=== PATIENT | female | born 1990 | race Caucasian/White ===

== ENCOUNTER 2018-08-20 19:57 | Outpatient (CLI) | payer OTHER ==
[2018-08-20] MEDS: TERBUTALINE 1 MG/ML INJ SC (23:04)
[2018-08-20 23:05] LABS: ADD UMIC YES; UR ASCORBIC ACID NEGATIVE (NEGATIVE); UR BILIRUBIN (Dip) NEGATIVE (NEGATIVE); UR BLOOD (Dip) NEGATIVE (NEGATIVE); UR CLARITY CLEAR (CLEAR); UR COLOR YELLOW (YELLOW); UR GLUCOSE (Dip) NEGATIVE (NEGATIVE); UR KETONES (Dip) NEGATIVE (NEGATIVE); UR LEUKOCYTE ESTERASE (Dip) TRACE Leu/ul (NEGATIVE); UR MUCUS FEW /HPF (NONE SEEN); UR NITRITE (Dip) NEGATIVE (NEGATIVE); UR RBC 0 /HPF (0-5); UR SPECIFIC GRAVITY (Dip) 1.021 (1.003-1.030); UR SQUAMOUS EPITHELIAL CELL FEW /HPF (FEW); UR TOTAL PROTEIN (Dip) NEGATIVE (NEGATIVE); UR UROBILINOGEN (Dip) NEGATIVE (NEGATIVE); UR WBC 5 /HPF (0-5)
[2018-08-20] MEDS: LACTATED RINGER'S 1,000 ML IV* (23:49)
[2018-08-21] MEDS: LACTATED RINGER'S 1,000 ML IV* (00:25)
[2018-08-21] MEDS: TERBUTALINE 1 MG/ML INJ SC (04:44)
== END 2018-08-21 06:27 | disposition home or self-care (01) ==
LOC: OBT 19:57 → L-D 19:58
DX: O62.9 Abnormality of forces of labor, unspecified (principal); Z3A.33 33 weeks gestation of pregnancy
CPT/HCPCS: 36415; 76817; 76818; 81001; 82731; 96360; 96361

== ENCOUNTER 2018-08-28 19:14 | Outpatient (CLI) | payer OTHER ==
[2018-08-28 20:28] LABS: ADD UMIC YES; UR ASCORBIC ACID NEGATIVE (NEGATIVE); UR BILIRUBIN (Dip) NEGATIVE (NEGATIVE); UR BLOOD (Dip) NEGATIVE (NEGATIVE); UR CLARITY SLIGHTLY CLOUDY (CLEAR); UR COLOR YELLOW (YELLOW); UR GLUCOSE (Dip) NEGATIVE (NEGATIVE); UR KETONES (Dip) NEGATIVE (NEGATIVE); UR LEUKOCYTE ESTERASE (Dip) TRACE Leu/ul (NEGATIVE); UR NITRITE (Dip) NEGATIVE (NEGATIVE); UR RBC 1 /HPF (0-5); UR SPECIFIC GRAVITY (Dip) 1.028 (1.003-1.030); UR SQUAMOUS EPITHELIAL CELL FEW /HPF (FEW); UR TOTAL PROTEIN (Dip) NEGATIVE (NEGATIVE); UR UROBILINOGEN (Dip) NEGATIVE (NEGATIVE); UR WBC 4 /HPF (0-5)
[2018-08-28] MEDS: NIFEdipine (XL) 60 MG TAB PO (20:29)
[2018-08-28] MEDS: BETAMET NA PHOS/AC(6 MG/ML) 2 ML INJ SYG IM (20:33)
== END 2018-08-28 21:50 | disposition home or self-care (01) ==
LOC: OBT 19:14 → L-D 19:15 → OBT 21:50
DX: O62.9 Abnormality of forces of labor, unspecified (principal); Z3A.34 34 weeks gestation of pregnancy
CPT/HCPCS: 81001; 96372

== ENCOUNTER 2018-09-02 18:36 | Outpatient (CLI) | payer OTHER ==
[2018-09-02 19:55] LABS: ADD UMIC YES; UR ASCORBIC ACID NEGATIVE (NEGATIVE); UR BACTERIA FEW /HPF (NONE SEEN); UR BILIRUBIN (Dip) NEGATIVE (NEGATIVE); UR BLOOD (Dip) NEGATIVE (NEGATIVE); UR CLARITY CLOUDY (CLEAR); UR COLOR YELLOW (YELLOW); UR GLUCOSE (Dip) NEGATIVE (NEGATIVE); UR KETONES (Dip) NEGATIVE (NEGATIVE); UR LEUKOCYTE ESTERASE (Dip) 2+ Leu/ul (NEGATIVE); UR MUCUS FEW /HPF (NONE SEEN); UR NITRITE (Dip) NEGATIVE (NEGATIVE); UR RBC 1 /HPF (0-5); UR SQUAMOUS EPITHELIAL CELL MODERATE /HPF (FEW); UR TOTAL PROTEIN (Dip) NEGATIVE (NEGATIVE); UR UROBILINOGEN (Dip) NEGATIVE (NEGATIVE); UR WBC 19 /HPF (0-5)
== END 2018-09-02 21:00 | disposition home or self-care (01) ==
LOC: OBT 18:36 → L-D 18:37 → OBT 21:00
DX: O47.03 False labor before 37 completed weeks of gestation, third trimester (principal); Z3A.35 35 weeks gestation of pregnancy
CPT/HCPCS: 81001

== ENCOUNTER 2018-09-13 12:26 | Inpatient (IN) | payer OTHER ==
[2018-09-13 14:31] LABS: ADD UMIC YES; UR ASCORBIC ACID NEGATIVE (NEGATIVE); UR BACTERIA FEW /HPF (NONE SEEN); UR BILIRUBIN (Dip) NEGATIVE (NEGATIVE); UR BLOOD (Dip) 3+ mg/dL (NEGATIVE); UR CLARITY SLIGHTLY CLOUDY (CLEAR); UR COLOR YELLOW (YELLOW); UR GLUCOSE (Dip) NEGATIVE (NEGATIVE); UR KETONES (Dip) NEGATIVE (NEGATIVE); UR LEUKOCYTE ESTERASE (Dip) TRACE Leu/ul (NEGATIVE); UR MUCUS FEW /HPF (NONE SEEN); UR NITRITE (Dip) NEGATIVE (NEGATIVE); UR RBC 129 /HPF (0-5); UR SPECIFIC GRAVITY (Dip) 1.018 (1.003-1.030); UR SQUAMOUS EPITHELIAL CELL FEW /HPF (FEW); UR TOTAL PROTEIN (Dip) 1+ mg/dl (NEGATIVE); UR UROBILINOGEN (Dip) NEGATIVE (NEGATIVE); UR WBC 6 /HPF (0-5)
[2018-09-13] MEDS: LACTATED RINGER'S 1,000 ML IV ×4 (14:58→20:50)
[2018-09-13 15:45] LABS: ADD MAN DIFF? NO
[2018-09-13 15:48] LABS: WHITE BLOOD COUNT 9.7 10^3/ul (4.8-10.8)
[2018-09-13 15:48] LABS: BASOPHILS % 0.3 % (0.0-2.0); EOSINOPHILS # 0.1 10^3/ul (0.0-0.5); HEMATOCRIT 40.2 % (37.0-47.0); HEMOGLOBIN 13.3 g/dl (12.0-16.0); LYMPHOCYTES # 1.7 10^3/ul (0.8-2.9); LYMPHOCYTES % 17.7 % (15.0-51.0); MEAN CORPUSCULAR HGB CONC 33.1 g/dl (32.0-37.0); MEAN CORPUSCULAR VOLUME 90.5 fl (82.0-101.0); MEAN PLATELET VOLUME 9.2 fl (7.4-10.4); MONOCYTE # 0.6 10^3/ul (0.3-0.9); MONOCYTES % 5.9 % (0.0-11.0); NEUTROPHIL # 7.2 10^3/ul (1.6-7.5); NEUTROPHILS % 74.5 % (39.0-77.0); PLATELET COUNT 208 10^3/UL (140-415); RED BLOOD COUNT 4.44 10^6/ul (4.20-5.40); RED CELL DISTRIBUTION WIDTH 13.2 % (11.5-14.5)
[2018-09-13] MEDS ORDERED: BUTORPHANOL 2 MG INJ IV (16:00)
[2018-09-13] MEDS ORDERED: CARBOPROST 250 MCG INJ IM (16:00)
[2018-09-13] MEDS ORDERED: METHYLERGONOVINE 0.2 MG INJ IM (16:00)
[2018-09-13] MEDS ORDERED: LIDOCAINE 1% (MPF) 30 ML INJ INJ (16:00)
[2018-09-13] MEDS ORDERED: BUTORPHANOL 1 MG INJ IV (16:00)
[2018-09-13] MEDS ORDERED: MISOPROSTOL 200 MCG TAB PR (16:00)
[2018-09-13] MEDS ORDERED: OXYTOCIN 30 UNITS/LR 500 ML IV (16:00)
[2018-09-13 16:10] LABS: INR 0.93; PROTIME 12.6 Sec (11.9-14.9)
[2018-09-13] MEDS: AMPICILLIN 2 GM/NS (PMX) 100 ML IV (16:36)
[2018-09-13 17:19] LABS: HEPATITIS B SURFACE ANTIGEN NEGATIVE (NEGATIVE)
[2018-09-13 17:59] LABS: URIC ACID 4.9 mg/dl (3.1-7.9)
[2018-09-13 18:00] LABS: ALANINE AMINOTRANSFERASE 14 IU/L (13-69); ALBUMIN 3.1 g/dl (3.3-4.9); ALBUMIN/GLOBULIN RATIO 0.96; ALKALINE PHOSPHATASE 175 IU/L (42-121); ANION GAP 5 (5-13); ASPARTATE AMINO TRANSFERASE 22 IU/L (15-46); BILIRUBIN,INDIRECT 0.2 mg/dl (0-1.1); BILIRUBIN,TOTAL 0.2 mg/dl (0.2-1.3); BLOOD UREA NITROGEN 8 mg/dl (7-20); CALCIUM 8.8 mg/dl (8.4-10.2); CARBON DIOXIDE 22 mmol/L (21-31); CHLORIDE 108 mmol/L (97-110); CREATININE 0.42 mg/dl (0.44-1.00); Estimated GFR > 60 mL/min (>60); GLUCOSE 73 mg/dl (70-220); POTASSIUM 3.8 mmol/L (3.5-5.1); SODIUM 135 mmol/L (135-144); TOTAL PROTEIN 6.3 g/dl (6.1-8.1)
[2018-09-13] MEDS ORDERED: LACTATED RINGER'S 1,000 ML IV (19:18)
[2018-09-13] MEDS: AMPICILLIN 1 GM/NS (PMX) 50 ML IV (20:00)
[2018-09-13] MEDS ORDERED: ONDANSETRON 4 MG INJ IV (20:30)
[2018-09-13] MEDS ORDERED: FENTAnyl 2MCG/ML-ROPIV 0.2% 100 ML BAG EPI (20:30)
[2018-09-13] MEDS ORDERED: NALOXONE (0.4 MG/ML) INJ IV (20:30)
[2018-09-13] MEDS: OXYTOCIN 30 UNITS/LR 500 ML IV ×2 (21:26→23:28)
[2018-09-13] MEDS: MINERAL OIL LIGHT 10 ML VIAL TOP (23:27)
[2018-09-14] MEDS ORDERED: MISOPROSTOL 200 MCG TAB PR (00:30)
[2018-09-14] MEDS ORDERED: CARBOPROST 250 MCG INJ IM (00:30)
[2018-09-14] MEDS ORDERED: MAGNESIUM HYDROXIDE 30ML CUP PO (00:30)
[2018-09-14] MEDS ORDERED: ACETAMINOPHEN 325 MG TAB PO (00:30)
[2018-09-14] MEDS ORDERED: ONDANSETRON 4 MG INJ IV (00:30)
[2018-09-14] MEDS ORDERED: METHYLERGONOVINE 0.2 MG INJ IM (00:30)
[2018-09-14] MEDS ORDERED: OXYTOCIN 30 UNITS/LR 500 ML IV (00:30)
[2018-09-14] MEDS ORDERED: SENNA/DOCUSATE NA (8.6MG/50MG) TAB PO (00:30)
[2018-09-14] MEDS ORDERED: DIBUCAINE 1% 30 GM OINT TOP (00:30)
[2018-09-14] MEDS: OXYTOCIN 30 UNITS/LR 500 ML IV ×2 (00:40→04:35)
[2018-09-14] MEDS: IBUPROFEN 600 MG TAB PO ×3 (04:38→23:49)
[2018-09-14] MEDS: LACTATED RINGER'S 1,000 ML IV* ×2 (08:00→08:15)
[2018-09-14] MEDS: WITCH HAZEL/GLYCERIN PAD PR (11:40)
[2018-09-14] MEDS: BENZOCAINE 20% 56 ML SPRAY TOP (11:40)
[2018-09-14] MEDS: LANOLIN HPA 1 PKT TOP (13:44)
[2018-09-14 14:44] LABS: RAPID PLASMA REAGIN NONREACTIVE (NR)
[2018-09-14] MEDS: ACETAMINOPHEN 325 MG TAB PO (22:23)
[2018-09-15] MEDS: IBUPROFEN 600 MG TAB PO (05:43)
[2018-09-15 08:32] LABS: ADD MAN DIFF? NO
[2018-09-15 08:38] LABS: BASOPHILS % 0.3 % (0.0-2.0); EOSINOPHILS # 0.2 10^3/ul (0.0-0.5); EOSINOPHILS % 1.6 % (0.0-7.0); HEMATOCRIT 35.2 % (37.0-47.0); HEMOGLOBIN 11.3 g/dl (12.0-16.0); LYMPHOCYTES # 1.7 10^3/ul (0.8-2.9); LYMPHOCYTES % 16.6 % (15.0-51.0); MEAN CORPUSCULAR HEMOGLOBIN 29.4 pg (29.0-33.0); MEAN CORPUSCULAR HGB CONC 32.1 g/dl (32.0-37.0); MEAN CORPUSCULAR VOLUME 91.4 fl (82.0-101.0); MEAN PLATELET VOLUME 9.2 fl (7.4-10.4); MONOCYTE # 0.5 10^3/ul (0.3-0.9); MONOCYTES % 4.7 % (0.0-11.0); NEUTROPHIL # 7.6 10^3/ul (1.6-7.5); NEUTROPHILS % 75.9 % (39.0-77.0); PLATELET COUNT 187 10^3/UL (140-415); RED BLOOD COUNT 3.85 10^6/ul (4.20-5.40); RED CELL DISTRIBUTION WIDTH 13.3 % (11.5-14.5)
== END 2018-09-15 14:00 | disposition home or self-care (01) | DRG 807 ==
LOC: OBT 12:26 → L-D 12:26 → PP1 09-14 08:06 → OBT 15:30 → L-D 15:30
PROC: 10E0XZZ Delivery of Products of Conception, External Approach (ICD-10-PCS; principal; 2018-09-14)
PROC: 0KQM0ZZ Repair Perineum Muscle, Open Approach (ICD-10-PCS; 2018-09-14)
DX: O70.1 Second degree perineal laceration during delivery (principal); Z37.0 Single live birth; O69.81X0 Labor and delivery complicated by cord around neck, without compression, not applicable or unspecified; Z3A.38 38 weeks gestation of pregnancy
CPT/HCPCS: 76815; 76818; 80053; 81001; 84560; 85025; 85610; 85730; 86592; 86850; 86900; 86901; 87086; 87340; 96372